=== PATIENT | male | born 1950 | race Two or more races ===

== ENCOUNTER 2025-04-03 14:02 | Emergency (ER) | payer OTHER ==
[~2025-04-03] VITALS: Ht 188 cm; Wt 88.0 kg
[2025-04-03] MEDS ORDERED: COZAAR100 MG PO (15:24)
[2025-04-03] MEDS ORDERED: ZETIA10 MG (15:25)
[2025-04-03] MEDS ORDERED: XARELTO20 M1 PO (15:26)
[2025-04-03] MEDS ORDERED: ROSUVASTATIN CAL5 MG PO (15:26)
[2025-04-03] MEDS ORDERED: 0.9 % SODIUM CHLORIDE 500 ML IV ONE (15:45)
[2025-04-03 16:59] LABS: BASO % 0.8 % (0.1-1.2); EOS # 0.00 (0.04-0.54); EOS % 0.0 % (0.7-7.0); LYMPH # 0.54 (1.18-3.74); LYMPH % 13.6 % (19.3-53.1); MEAN PLATELET VOLUME 10.30 fl (9.4-12.4); MONO # 0.54 (0.24-0.82); NEUT # 2.86 (1.56-6.13); NEUT % 71.7 % (34.0-71.1); RED CELL DISTRIBUTION WIDTH 12.9 % (11.6-14.4)
[2025-04-03 17:08] LABS: MONO % 13.6 % (4.7-12.5)
[2025-04-03 17:23] LABS: COVID-19 AG NEGATIVE (NEGATIVE)
[2025-04-03 17:30] LABS: URINE APPEARANCE Clear; URINE BILIRRUBIN Negative (NEGATIVE); URINE BLOOD Moderate; URINE COLOR Dark Yellow; URINE GLUCOSE Negative (NEGATIVE); URINE KETONE Negative (NEGATIVE); URINE LEUKOCYTE Trace; URINE NITRATE Negative; URINE PROTEIN 30 (NEGATIVE); URINE UROBILINOGEN 1.0 E.U./dl
[2025-04-03 17:32] LABS: INR 1.34
[2025-04-03 17:34] LABS: URINE BACTERIA 5.9 uL (0.0-1933); URINE EPITHELIAL CELLS 3.6 uL (0.0-38.8); URINE RBC 11.4 uL (0.0-20.8); URINE WBC 3.0 uL (0.0-23.2)
[2025-04-03 17:36] LABS: URINE CAST 0.14 uL (0.0-1.40)
[2025-04-03 18:10] LABS: ALT/SGPT 46.0 U/L (12-78); AST/SGOT 52.0 U/L (15-37); BILIRUBIN TOTAL 1.54 mg/dL (0.3-1.2); BUN CREA RATIO 17.0 (7.0-25.0); CREATININE SERUM 1.06 mg/dL (0.70-1.30); GFR 68.29; GLOBULINA 3.4 G/DL (2.4-3.5); GLUCOSE FASTING 111.0 mg/dL (65-100); PHOSPHOKINASE CREATININE 155.0 U/L (39-308); TSH 0.796 uIU/mL (0.358-3.74)
[2025-04-03 18:14] LABS: OSMOLALITY SERUM 269.0 MOSM/KG (275-295)
== END 2025-04-03 21:25 ==
LOC: ER 14:03
PROVIDERS: General Practice
DX: B34.9 Viral infection, unspecified (principal); R53.81 Other malaise; I10 Essential (primary) hypertension; Z20.822 Contact with and (suspected) exposure to COVID-19